=== PATIENT | male | born 1980 | race Caucasian/White ===

== ENCOUNTER 2016-10-11 10:53 | Emergency (ER) | payer SELFPAY ==
[2016-10-11] MEDS ORDERED: NORCO, ANEXSIA 5/325MG TABLET (HYDROcodone/ACETAMINOPHEN) As Ordered ONE (11:08)
[2016-10-11] MEDS ORDERED: CEPHALEXIN 500 MG CAP As Ordered ONE (11:09)
[2016-10-11] MEDS ORDERED: LIDOCAINE 1% MDV 20ML VIAL As Ordered ONE (11:09)
--- NOTE | 2016-10-11 12:07 | REP ---
LEFT THUMB SERIES, COMPLETE: 10/11/2016. Clinical history: Left thumb injury. Findings: No prior study. There is a soft tissue laceration of the distal pad of the thumb without subjacent fracture, avulsion or radiopaque foreign body. IP joint, MCP joint and other visualized bones unremarkable. Impression: 1. Soft tissue laceration of the distal pad of the thumb without definite displaced fracture. Signed by Vince Doe MD 10/11/2016 04:42 P
--- NOTE | 2016-10-11 12:21 | EDDOCDS ---
Physician Documentation [facility] Name: Vahid Mata Age: 36 yrs Sex: Male : 1980 Arrival Date: 10/11/2016 Time: 10:53 Bed I6 / 28 Private MD: NO PRIMARY PHYSICIAN, . Disposition: 10/11/16 12:13 Discharged to Home/Self Care. Impression: Laceration without foreign body of left thumb with damage to nail. - Condition is Stable. - Discharge Instructions: Non-Sutured Laceration. - Prescriptions for Keflex 500 mg Oral Capsule - take 1 capsule by ORAL route every 8 hours for 10 days; 30 capsule. [place] 5- 325 mg Oral Tablet - take 1 tablet by ORAL route every 6 hours As needed MDD: 4 tabs; 20 tablet. - Medication Reconciliation, Local Pharmacy Hours form. - Follow up: Emergency Department; When: As needed; Reason: Worsening of conditions. Follow up: [facility]; When: Call to arrange an appointment; Reason: Wound/Symptom Recheck, Recheck today's complaints, Continuance of care, To establish care. - Problem is new. - Symptoms have improved. - Notes: KEEP THIS DRESSING ON, CLEAN AND DRY UNTIL YOU ARE SEEN BY ORTHO. PLEASE CALL THEM TODAY TO SCHEDULE AN APPOINTMENT FOR NEXT WEEK. TAKE THE ANTBIOTIC DIRECTED UNTIL THEY ARE GONE. Historical: - Allergies: no known allergies; - Home Meds: 1. none - PMHx: none; - PSHx: none; - Immunization history:: Last tetanus immunization: up to date. - Family history: No immediate family members are acutely ill. - Social history: Smoking status: Patient uses tobacco products, current every day smoker. No barriers to communication noted, The patient speaks fluent Cape Verdean, Speaks appropriately for age. - : The pt / caregiver states he / she is not on anticoagulants. Home medication list is obtained from the patient. - Exposure Risk Screening:: None identified. Vital Signs: 10/11 10:55 BP 149 / 83; Pulse 80; Resp 18; Temp 98.6(T); Pulse Ox 96% on R/A; Weight 74.84 kg / dem1 164.99 lbs; Height 5 ft. 10 in. (177.80 cm); Pain 4/10; 11:50 Pain 8/10; mb9 12:16 BP 134 / 66; Pulse 77; Resp 18; Temp 97.8(O); Pulse Ox 95% on R/A; Pain 2/10; nb2 10:55 Body Mass Index 23.67 (74.84 kg, 177.80 cm) dem1 MDM: 11:06 Lidocaine 10 mg/mL (1 %) 10 ml Infiltration once; without epi please, thank you. dt4 ordered. 11:06 Cephalexin 500 mg PO once ordered. dt4 11:06 HYDROcodone-acetaminophen 5 mg-325 mg 1 tabs PO once ordered. dt4 11:07 Fingers Ordered. EDMS 11:36 Financial registration complete. mm15 11:36 [facility] Payment Agreement was scanned into [employer] and attached to record. mm15 Administered Medications: 11:13 Drug: Lidocaine 10 ml [lidocaine 10 mg/mL (1 %) injection solution (10 mL)] Route: mb9 Infiltration; 11:13 Drug: Cephalexin 500 mg [cephalexin 250 mg capsule (2 caps)] Route: PO; mb9 11:13 Drug: HYDROcodone-acetaminophen 1 tabs [hydrocodone 5 mg-acetaminophen 325 mg tablet (1 mb9 tabs)] Route: PO; 11:50 Follow up: Pain 8/10 Adult; Response: Confirmed pt not driving.; Pain is unchanged, moody9 physician notified; Evelina Brown aware of pt's pain. Signatures: Dispatcher [employer] EDIN Delfina Gutierrez RN RN srm McGrath, Marlynn mm15 Evelina Grullon, VIC PA-Buck dt4 Real Art RN RN mb9 The chart was reviewed and I authenticate all verbal orders and agree with the evaluation and treatment provided.Attachments: 11:36 [facility] Payment Agreement mm15 MTDD
--- NOTE | 2016-10-11 12:21 | EDDOCDS ---
Nurse's Notes [facility] Name: Vahid Mata Age: 36 yrs Sex: Male : 1980 Arrival Date: 10/11/2016 Time: 10:53 Bed I6 / 28 Private MD: NO PRIMARY PHYSICIAN, . Diagnosis: Laceration without foreign body of left thumb with damage to nail Presentation: 10/11 10:56 Presenting complaint: Patient states: left thumb lac from table saw. pt holding srm pressure dressing at this time. Adult Sepsis Screening: The patient does not have new or worsening altered mentation. Patient's respiratory rate is less than 22. Systolic blood pressure is greater than 100. Patient has a qSOFA score of 0- Negative Sepsis Screen. Suicide/Homicide risk assessment- the patient denies having any suicidal and/or homicidal ideations and does not present with any other emotional, behavioral or mental health complaints. Status: Patient is not a septic tank servicer or dependent. Transition of care: patient was not received from another setting of care. 10:56 Acuity: SREEDHAR Level 4 srm 10:56 Method Of Arrival: Walkin/Carried/Asstd srm Triage Assessment: 10:57 General: Appears in no apparent distress, Behavior is appropriate for age, cooperative. srm Pain: Pain currently is 5 out of 10 on a pain scale. 10:58 Pt Declines HIV testing. srm Historical: - Allergies: no known allergies; - Home Meds: 1. none - PMHx: none; - PSHx: none; - Immunization history:: Last tetanus immunization: up to date. - Family history: No immediate family members are acutely ill. - Social history: Smoking status: Patient uses tobacco products, current every day smoker. No barriers to communication noted, The patient speaks fluent Samoan, Speaks appropriately for age. - : The pt / caregiver states he / she is not on anticoagulants. Home medication list is obtained from the patient. - Exposure Risk Screening:: None identified. Screenin:24 Screening information is obtained from the patient. Fall risk: No risks identified. mb9 Assistance ADL's: requires no assistance with activities of daily living. Abuse/DV Screen: The patient / caregiver reports he/she is: not in a situation that causes fear, pain or injury. Nutritional screening: No deficits noted. Advance Directives: There is no active DNR order. home support is adequate. Assessment: 11:02 Injury Description: Laceration sustained to left thumb- scalpled pad of thumb is srm jagged, 2.6 to 7.5 cm long, bleeding moderately. 11:24 General: Appears uncomfortable, Behavior is cooperative. Pain: Location: palmar aspect mb9 of distal phalanx of left thumb Pain currently is 8 out of 10 on a pain scale. Respiratory: Airway is patent Respiratory effort is even, unlabored. Injury Description: Avulsion sustained to palmar aspect of distal phalanx of left thumb is complete was sustained 1-2 hours ago. 12:19 Reassessment: Patient appears in no apparent distress at this time. General: Appears in mb9 no apparent distress, Behavior is appropriate for age, cooperative. Pain: Denies pain. Respiratory: Airway is patent Respiratory effort is even, unlabored. Vital Signs: 10:55 BP 149 / 83; Pulse 80; Resp 18; Temp 98.6(T); Pulse Ox 96% on R/A; Weight 74.84 kg; dem1 Height 5 ft. 10 in. (177.80 cm); Pain 4/10; 11:50 Pain 8/10; mb9 12:16 BP 134 / 66; Pulse 77; Resp 18; Temp 97.8(O); Pulse Ox 95% on R/A; Pain 2/10; nb2 10:55 Body Mass Index 23.67 (74.84 kg, 177.80 cm) [facility] Vitals: 10:55 Log In Time: October 11, 2016 at 10:54. [facility] ED Course: 10:54 Patient visited by Radha Pastor. dem1 10:54 Patient moved to Waiting dem1 10:55 NO PRIMARY PHYSICIAN, . is Private Physician. dem1 10:56 Patient visited by Radha Pastor. dem1 10:56 Patient moved to Pre RCE dem1 10:57 Triage Initiated srm 10:58 Patient moved to Triage 2 srm 11:00 Evelina Grullon PA-C is PHCP. dt4 11:00 Sajan Chaudhary MD is Attending Physician. dt4 11:00 Patient visited by Evelina Grullon PA-C. dt4 11:07 Patient moved to I6 / 28 mb9 11:24 The patient / caregiver is instructed regarding the plan of care and ED course. Patient mb9 has correct armband on for positive identification. 11:36 [facility] Payment Agreement was scanned into [employer] and attached to record. mm15 11:54 Patient visited by Evelina Grullon PA-C. dt4 12:11 Patient name changed from Vahid\S\\S\Esperanza\S\ to Vahid\S\ \S\Esperanza. EDMS 12:12 [facility] is Referral Physician. dt4 12:16 Patient visited by Lizzy Maurice. nb2 12:20 No IV's were initiated during this patient's visit. No procedures done that require mb9 assistance. Administered Medications: 11:13 Drug: Lidocaine 10 ml [lidocaine 10 mg/mL (1 %) injection solution (10 mL)] Route: mb9 Infiltration; 11:13 Drug: Cephalexin 500 mg [cephalexin 250 mg capsule (2 caps)] Route: PO; mb9 11:13 Drug: HYDROcodone-acetaminophen 1 tabs [hydrocodone 5 mg-acetaminophen 325 mg tablet (1 mb9 tabs)] Route: PO; 11:50 Follow up: Pain 810 Adult; Response: Confirmed pt not driving.; Pain is unchanged, mb9 physician notified; Evelina Brown aware of pt's pain. Intake: Order Results: There are currently no results for this order. Outcome: 12:13 Discharge ordered by Provider. dt4 12:20 Discharge Assessment: Patient awake, alert and oriented x 3. No cognitive and/or mb9 functional deficits noted. Patient verbalized understanding of disposition instructions. patient administered narcotics - yes. Pt provided with safe discharge. The following High Risk Discharge criteria are identified: None. Discharged to home ambulatory, with friend. Condition: good Condition: stable Condition: improved. Discharge instructions given to patient, Instructed on discharge instructions, follow up and referral plans. medication usage, no driving heavy equipment, wound care, Rest, Ice, Compression and Elevation. Demonstrated understanding of instructions, medications, Pt was receptive of discharge instructions/ teaching. Prescriptions given X 2. No special radiology studies were completed. Property :Personal belongings accompany Pt. 12:21 Patient left the ED. mb9 Signatures: Dispatcher [employer] EDMS Delfina Gutierrez, Radha Negron RN1 Dane Caballero mm15 Evelina Grullon, VIC PA-C dt4 Real Art,RN RN mb9 Lizzy Maurice nb2 MTDD
--- NOTE | 2016-10-13 13:21 | EDDOCDS ---
Physician Documentation [facility] Name: Vahid Mata Age: 36 yrs Sex: Male : 1980 Arrival Date: 10/11/2016 Time: 10:53 Bed I6 / 28 Private MD: NO PRIMARY PHYSICIAN, . Disposition: 10/11/16 12:13 Discharged to Home/Self Care. Impression: Laceration without foreign body of left thumb with damage to nail. - Condition is Stable. - Discharge Instructions: Non-Sutured Laceration. - Prescriptions for Keflex 500 mg Oral Capsule - take 1 capsule by ORAL route every 8 hours for 10 days; 30 capsule. [place] 5- 325 mg Oral Tablet - take 1 tablet by ORAL route every 6 hours As needed MDD: 4 tabs; 20 tablet. - Medication Reconciliation, Local Pharmacy Hours form. - Follow up: Emergency Department; When: As needed; Reason: Worsening of conditions. Follow up: [facility]; When: Call to arrange an appointment; Reason: Wound/Symptom Recheck, Recheck today's complaints, Continuance of care, To establish care. - Problem is new. - Symptoms have improved. - Notes: KEEP THIS DRESSING ON, CLEAN AND DRY UNTIL YOU ARE SEEN BY ORTHO. PLEASE CALL THEM TODAY TO SCHEDULE AN APPOINTMENT FOR NEXT WEEK. TAKE THE ANTBIOTIC DIRECTED UNTIL THEY ARE GONE. Historical: - Allergies: no known allergies; - Home Meds: 1. none - PMHx: none; - PSHx: none; - Immunization history:: Last tetanus immunization: up to date. - Family history: No immediate family members are acutely ill. - Social history: Smoking status: Patient uses tobacco products, current every day smoker. No barriers to communication noted, The patient speaks fluent Lebanese, Speaks appropriately for age. - : The pt / caregiver states he / she is not on anticoagulants. Home medication list is obtained from the patient. - Exposure Risk Screening:: None identified. Vital Signs: 10/11 10:55 BP 149 / 83; Pulse 80; Resp 18; Temp 98.6(T); Pulse Ox 96% on R/A; Weight 74.84 kg / dem1 164.99 lbs; Height 5 ft. 10 in. (177.80 cm); Pain 4/10; 11:50 Pain 8/10; mb9 12:16 BP 134 / 66; Pulse 77; Resp 18; Temp 97.8(O); Pulse Ox 95% on R/A; Pain 2/10; nb2 10:55 Body Mass Index 23.67 (74.84 kg, 177.80 cm) dem1 MDM: 11:06 Lidocaine 10 mg/mL (1 %) 10 ml Infiltration once; without epi please, thank you. dt4 ordered. 11:06 Cephalexin 500 mg PO once ordered. dt4 11:06 HYDROcodone-acetaminophen 5 mg-325 mg 1 tabs PO once ordered. dt4 11:07 Fingers Ordered. EDIL 11:36 Financial registration complete. mm15 11:36 [facility] Payment Agreement was scanned into [employer] and attached to record. mm15 18:20 T-Sheet-- Draft Copy was scanned into [employer] and attached to record. klr 18:22 T-Sheet-- Draft Copy was scanned into [employer] and attached to record. klr Administered Medications: 11:13 Drug: Lidocaine 10 ml [lidocaine 10 mg/mL (1 %) injection solution (10 mL)] Route: mb9 Infiltration; 11:13 Drug: Cephalexin 500 mg [cephalexin 250 mg capsule (2 caps)] Route: PO; mb9 11:13 Drug: HYDROcodone-acetaminophen 1 tabs [hydrocodone 5 mg-acetaminophen 325 mg tablet (1 mb9 tabs)] Route: PO; 11:50 Follow up: Pain 8/10 Adult; Response: Confirmed pt not driving.; Pain is unchanged, mb9 physician notified; Evelina Brown aware of pt's pain. Signatures: Dispatcher [employer] EDIL Delfina Gutierrez RN RN srm McGrath, Marlynn mm15 Evelina Grullon PA-C PA-C dt4 Real Art RN RN mb9 Redder, Kathie klr The chart was reviewed and I authenticate all verbal orders and agree with the evaluation and treatment provided.Attachments: 11:36 [facility] Payment Agreement mm15 18:22 T-Sheet-- Draft Copy klr Chart Complete MTDD
--- NOTE | 2016-10-13 13:21 | EDDOCDS ---
Physician Documentation [facility] Name: Vahid Mata Age: 36 yrs Sex: Male : 1980 Arrival Date: 10/11/2016 Time: 10:53 Bed I6 / 28 Private MD: NO PRIMARY PHYSICIAN, . Disposition: 10/11/16 12:13 Discharged to Home/Self Care. Impression: Laceration without foreign body of left thumb with damage to nail. - Condition is Stable. - Discharge Instructions: Non-Sutured Laceration. - Prescriptions for Keflex 500 mg Oral Capsule - take 1 capsule by ORAL route every 8 hours for 10 days; 30 capsule. [place] 5- 325 mg Oral Tablet - take 1 tablet by ORAL route every 6 hours As needed MDD: 4 tabs; 20 tablet. - Medication Reconciliation, Local Pharmacy Hours form. - Follow up: Emergency Department; When: As needed; Reason: Worsening of conditions. Follow up: [facility]; When: Call to arrange an appointment; Reason: Wound/Symptom Recheck, Recheck today's complaints, Continuance of care, To establish care. - Problem is new. - Symptoms have improved. - Notes: KEEP THIS DRESSING ON, CLEAN AND DRY UNTIL YOU ARE SEEN BY ORTHO. PLEASE CALL THEM TODAY TO SCHEDULE AN APPOINTMENT FOR NEXT WEEK. TAKE THE ANTBIOTIC DIRECTED UNTIL THEY ARE GONE. Historical: - Allergies: no known allergies; - Home Meds: 1. none - PMHx: none; - PSHx: none; - Immunization history:: Last tetanus immunization: up to date. - Family history: No immediate family members are acutely ill. - Social history: Smoking status: Patient uses tobacco products, current every day smoker. No barriers to communication noted, The patient speaks fluent Georgian, Speaks appropriately for age. - : The pt / caregiver states he / she is not on anticoagulants. Home medication list is obtained from the patient. - Exposure Risk Screening:: None identified. Vital Signs: 10/11 10:55 BP 149 / 83; Pulse 80; Resp 18; Temp 98.6(T); Pulse Ox 96% on R/A; Weight 74.84 kg / dem1 164.99 lbs; Height 5 ft. 10 in. (177.80 cm); Pain 4/10; 11:50 Pain 8/10; mb9 12:16 BP 134 / 66; Pulse 77; Resp 18; Temp 97.8(O); Pulse Ox 95% on R/A; Pain 2/10; nb2 10:55 Body Mass Index 23.67 (74.84 kg, 177.80 cm) dem1 MDM: 11:06 Lidocaine 10 mg/mL (1 %) 10 ml Infiltration once; without epi please, thank you. dt4 ordered. 11:06 Cephalexin 500 mg PO once ordered. dt4 11:06 HYDROcodone-acetaminophen 5 mg-325 mg 1 tabs PO once ordered. dt4 11:07 Fingers Ordered. EDPR 11:36 Financial registration complete. mm15 11:36 [facility] Payment Agreement was scanned into [employer] and attached to record. mm15 18:20 T-Sheet-- Draft Copy was scanned into [employer] and attached to record. klr 18:22 T-Sheet-- Draft Copy was scanned into [employer] and attached to record. klr Administered Medications: 11:13 Drug: Lidocaine 10 ml [lidocaine 10 mg/mL (1 %) injection solution (10 mL)] Route: mb9 Infiltration; 11:13 Drug: Cephalexin 500 mg [cephalexin 250 mg capsule (2 caps)] Route: PO; mb9 11:13 Drug: HYDROcodone-acetaminophen 1 tabs [hydrocodone 5 mg-acetaminophen 325 mg tablet (1 mb9 tabs)] Route: PO; 11:50 Follow up: Pain 8/10 Adult; Response: Confirmed pt not driving.; Pain is unchanged, mb9 physician notified; Evelina Brown aware of pt's pain. Signatures: Dispatcher [employer] EDPR Delfina Gutierrez RN RN srm McGrath, Marlynn mm15 Evelina Grullon PA-C PA-C dt4 Real Art RN RN mb9 Redder, Kathie klr The chart was reviewed and I authenticate all verbal orders and agree with the evaluation and treatment provided.Attachments: 11:36 [facility] Payment Agreement mm15 18:22 T-Sheet-- Draft Copy klr Chart Complete MTDD
--- NOTE | 2016-10-13 13:21 | EDDOCDS ---
Nurse's Notes [facility] Name: Vahid Mata Age: 36 yrs Sex: Male : 1980 Arrival Date: 10/11/2016 Time: 10:53 Bed I6 / 28 Private MD: NO PRIMARY PHYSICIAN, . Diagnosis: Laceration without foreign body of left thumb with damage to nail Presentation: 10/11 10:56 Presenting complaint: Patient states: left thumb lac from table saw. pt holding srm pressure dressing at this time. Adult Sepsis Screening: The patient does not have new or worsening altered mentation. Patient's respiratory rate is less than 22. Systolic blood pressure is greater than 100. Patient has a qSOFA score of 0- Negative Sepsis Screen. Suicide/Homicide risk assessment- the patient denies having any suicidal and/or homicidal ideations and does not present with any other emotional, behavioral or mental health complaints. Status: Patient is not a biomedical service engineer or dependent. Transition of care: patient was not received from another setting of care. 10:56 Acuity: SREEDHAR Level 4 srm 10:56 Method Of Arrival: Walkin/Carried/Asstd srm Triage Assessment: 10:57 General: Appears in no apparent distress, Behavior is appropriate for age, cooperative. srm Pain: Pain currently is 5 out of 10 on a pain scale. 10:58 Pt Declines HIV testing. srm Historical: - Allergies: no known allergies; - Home Meds: 1. none - PMHx: none; - PSHx: none; - Immunization history:: Last tetanus immunization: up to date. - Family history: No immediate family members are acutely ill. - Social history: Smoking status: Patient uses tobacco products, current every day smoker. No barriers to communication noted, The patient speaks fluent Italian, Speaks appropriately for age. - : The pt / caregiver states he / she is not on anticoagulants. Home medication list is obtained from the patient. - Exposure Risk Screening:: None identified. Screenin:24 Screening information is obtained from the patient. Fall risk: No risks identified. mb9 Assistance ADL's: requires no assistance with activities of daily living. Abuse/DV Screen: The patient / caregiver reports he/she is: not in a situation that causes fear, pain or injury. Nutritional screening: No deficits noted. Advance Directives: There is no active DNR order. home support is adequate. Assessment: 11:02 Injury Description: Laceration sustained to left thumb- scalpled pad of thumb is srm jagged, 2.6 to 7.5 cm long, bleeding moderately. 11:24 General: Appears uncomfortable, Behavior is cooperative. Pain: Location: palmar aspect mb9 of distal phalanx of left thumb Pain currently is 8 out of 10 on a pain scale. Respiratory: Airway is patent Respiratory effort is even, unlabored. Injury Description: Avulsion sustained to palmar aspect of distal phalanx of left thumb is complete was sustained 1-2 hours ago. 12:19 Reassessment: Patient appears in no apparent distress at this time. General: Appears in mb9 no apparent distress, Behavior is appropriate for age, cooperative. Pain: Denies pain. Respiratory: Airway is patent Respiratory effort is even, unlabored. Vital Signs: 10:55 BP 149 / 83; Pulse 80; Resp 18; Temp 98.6(T); Pulse Ox 96% on R/A; Weight 74.84 kg; dem1 Height 5 ft. 10 in. (177.80 cm); Pain 4/10; 11:50 Pain 8/10; mb9 12:16 BP 134 / 66; Pulse 77; Resp 18; Temp 97.8(O); Pulse Ox 95% on R/A; Pain 2/10; nb2 10:55 Body Mass Index 23.67 (74.84 kg, 177.80 cm) [facility] Vitals: 10:55 Log In Time: October 11, 2016 at 10:54. [facility] ED Course: 10:54 Patient visited by Radha Pastor. dem1 10:54 Patient moved to Waiting dem1 10:55 NO PRIMARY PHYSICIAN, . is Private Physician. dem1 10:56 Patient visited by Radha Pastor. dem1 10:56 Patient moved to Pre RCE dem1 10:57 Triage Initiated srm 10:58 Patient moved to Triage 2 srm 11:00 Evelina Grullon PA-C is PHCP. dt4 11:00 Sajan Chaudhary MD is Attending Physician. dt4 11:00 Patient visited by Evelina Grullon PA-C. dt4 11:07 Patient moved to I6 / 28 mb9 11:24 The patient / caregiver is instructed regarding the plan of care and ED course. Patient mb9 has correct armband on for positive identification. 11:36 [facility] Payment Agreement was scanned into [email or web address] and attached to record. mm15 11:54 Patient visited by Evelina Grullon PA-C. dt4 12:11 Patient name changed from Vahid\S\\S\Esperanza\S\ to Vahid\S\ \S\Esperanza. EDMS 12:12 [facility] is Referral Physician. dt4 12:16 Patient visited by Lizzy Maurice. nb2 12:20 No IV's were initiated during this patient's visit. No procedures done that require mb9 assistance. 12:47 Fingers Returned. EDMS 18:20 T-Sheet-- Draft Copy was scanned into [email or web address] and attached to record. klr 18:22 T-Sheet-- Draft Copy was scanned into [email or web address] and attached to record. klr Administered Medications: 11:13 Drug: Lidocaine 10 ml [lidocaine 10 mg/mL (1 %) injection solution (10 mL)] Route: mb9 Infiltration; 11:13 Drug: Cephalexin 500 mg [cephalexin 250 mg capsule (2 caps)] Route: PO; mb9 11:13 Drug: HYDROcodone-acetaminophen 1 tabs [hydrocodone 5 mg-acetaminophen 325 mg tablet (1 mb9 tabs)] Route: PO; 11:50 Follow up: Pain 8/10 Adult; Response: Confirmed pt not driving.; Pain is unchanged, mb9 physician notified; Evelina Brown aware of pt's pain. Intake: Order Results: Radiology Order: Fingers Test: Fingers REASON FOR EXAMINATION: left thumb injury; LEFT THUMB SERIES, COMPLETE: 10/11/2016.; ; Clinical history: Left thumb injury.; ; Findings: No prior study. There is a soft tissue laceration of the distal pad; of the thumb without subjacent fracture, avulsion or radiopaque foreign body. IP; joint, MCP joint and other visualized bones unremarkable.; ; Impression:; ; 1. Soft tissue laceration of the distal pad of the thumb without definite; displaced fracture.; ; ; Signed by; Vince Doe MD 10/11/2016 04:42 P; Outcome: 12:13 Discharge ordered by Provider. dt4 12:20 Discharge Assessment: Patient awake, alert and oriented x 3. No cognitive and/or mb9 functional deficits noted. Patient verbalized understanding of disposition instructions. patient administered narcotics - yes. Pt provided with safe discharge. The following High Risk Discharge criteria are identified: None. Discharged to home ambulatory, with friend. Condition: good Condition: stable Condition: improved. Discharge instructions given to patient, Instructed on discharge instructions, follow up and referral plans. medication usage, no driving heavy equipment, wound care, Rest, Ice, Compression and Elevation. Demonstrated understanding of instructions, medications, Pt was receptive of discharge instructions/ teaching. Prescriptions given X 2. No special radiology studies were completed. Property :Personal belongings accompany Pt. 12:21 Patient left the ED. mb9 Signatures: Dispatcher [employer] EDMS Delfina Gutierrez, RN RN Radha Joy dem1 Dane Caballero mm15 Evelina Grullon, PA-C PA-C dt4 Real Art RN RN mb9 Corrina Menendez Nicole nb2 Chart Complete MASTER
== END 2016-10-11 12:21 | disposition home or self-care (01) ==
LOC: M ED 10:53
DX: S61.112A Laceration without foreign body of left thumb with damage to nail, initial encounter (principal); W27.0XXA Contact with workbench tool, initial encounter; Y92.018 Other place in single-family (private) house as the place of occurrence of the external cause; Y93.89 Activity, other specified; Y99.8 Other external cause status; F17.210 Nicotine dependence, cigarettes, uncomplicated